=== PATIENT | female | born 1960 | race Caucasian/White ===

== ENCOUNTER 2024-12-31 14:39 | Emergency (ER) | payer OTHER ==
[~2024-12-31] VITALS: Ht 172.7 cm; Wt 74.0 kg
[2024-12-31 15:47] LABS: PLATELET COUNT, AUTOMATED 295 10^3/uL (150-450)
[2024-12-31] MEDS ORDERED: BUPR150T12 (15:49)
[2024-12-31 16:17] LABS: AMPHETAMINES LEVEL URINE NEGATIVE (NEGATIVE)
[2024-12-31 16:18] LABS: BARBITURATES URINE NEGATIVE (NEGATIVE); COCAINE METABOLITE URINE NEGATIVE (NEGATIVE); METHADONE URINE NEGATIVE (NEGATIVE); OPIATES URINE NEGATIVE (NEGATIVE)
[2024-12-31 16:19] LABS: BENZODIAZEPINES URINE NEGATIVE (NEGATIVE); PHENCYCLIDINE URINE NEGATIVE (NEGATIVE); SALICYLATE LEVEL < 3.0 MG/DL (<30)
[2024-12-31 16:20] LABS: ALT/SGPT 13 U/L (7.0-40); AST/SGOT 34 U/L (<34); CALCIUM LEVEL 9.2 MG/DL (8.3-10.6); CARBON DIOXIDE LEVEL 21 MMOL/L (20-31); CHLORIDE LEVEL 107 MMOL/L (98-107); CREATININE FOR GFR 0.58 MG/DL (0.55-1.30); GLOMERULAR FILTRATION RATE > 90.0 (>45); POTASSIUM SERUM 3.9 MMOL/L (3.5-5.1); SODIUM LEVEL 145 MMOL/L (136-145)
[2024-12-31 16:37] LABS: CANNABINOIDS URINE POSITIVE (NEGATIVE)
[2024-12-31 16:50] LABS: ETHYL ALCOHOL (ETHANOL) 0.300 % (0.000-0.010)
[2024-12-31 18:12] VITALS: TEMP 97.7; O2SAT 97
[2024-12-31 18:13] VITALS: BP 145/80
[2024-12-31] MEDS: THIAMINE 100 MG TAB PO SCH (18:16)
[2025-01-01] MEDS ORDERED: MULTIVITAMINS/MINERALS THERAP 1 TAB PO SCH (09:00)
[2025-01-01] MEDS ORDERED: FOLIC ACID 1 MG TAB PO SCH (09:00)
== END 2025-01-01 01:56 | disposition home or self-care (01) ==
LOC: EDBD 14:39 → M ED 14:39
DX: F10.129 Alcohol abuse with intoxication, unspecified (principal); F12.10 Cannabis abuse, uncomplicated